=== PATIENT | male | born 1980 | race Caucasian/White ===

== ENCOUNTER 2021-11-05 19:47 | Emergency (ER) | payer OTHER ==
[~2021-11-05] VITALS: Ht 172.7 cm; Wt 100.0 kg
[2021-11-05 22:04] LABS: BASOPHILS % 1.4 % (0.0-2.0); EOSINOPHILS % 2.3 % (0.0-5.0); HEMATOCRIT. 43.4 % (42.0-52.0); LYMPHOCYTES % 40.2 % (20.0-50.0); MEAN CORPUSCULAR VOLUME 98.9 fL (80.0-94.0); MEAN PLATELET VOLUME 8.5 fl (7.4-10.4); MONOCYTES % 8.8 % (2.0-8.0); NEUTROPHILS % 47.3 % (40.0-76.0); PLATELET 186 x1000/uL (130-400); RED BLOOD CELL COUNT 4.38 mill/uL (4.7-6.1); RED CELL DISTRIBUTION WIDTH 14.2 % (11.6-14.6)
[2021-11-05 22:08] LABS: CHLORIDE 107 mEq/L (98-107)
[2021-11-05 22:29] LABS: ETHANOL BLOOD 298 mg/dL
[2021-11-06 02:52] LABS: CLARITY URINE CLEAR (CLEAR); COLOR URINE YELLOW (YELLOW); KETONES URINE NEGATIVE (NEGATIVE); LEUKOCYTE ESTERASE URINE NEGATIVE (NEGATIVE); NITRITE URINE NEGATIVE (NEGATIVE); OCCULT BLOOD URINE NEGATIVE (NEGATIVE); PROTEIN URINE TRACE (NEGATIVE); SPECIFIC GRAVITY URINE 1.021 (1.005-1.030)
[2021-11-06 02:59] LABS: *AMPHETAMINES SCREEN URINE NEGATIVE (NEGATIVE); *BARBITURATES SCREEN URINE NEGATIVE (NEGATIVE); *BENZODIAZEPINES SCREEN URINE NEGATIVE (NEGATIVE); *COCAINE SCREEN URINE NEGATIVE (NEGATIVE)
[2021-11-06 03:00] LABS: CANNABINOID URINE SCREEN NEGATIVE (NEGATIVE); METHADONE URINE SCREEN NEGATIVE (NEGATIVE); OPIATES URINE SCREEN NEGATIVE (NEGATIVE); PHENCYCLIDINE URINE SCREEN NEGATIVE (NEGATIVE)
[2021-11-06 06:00] VITALS: BP 159/80
== END 2021-11-06 06:02 | disposition home or self-care (01) ==
LOC: ER 19:47
DX: F10.129 Alcohol abuse with intoxication, unspecified (principal); R05.9 Cough, unspecified; Y90.8 Blood alcohol level of 240 mg/100 ml or more; F41.9 Anxiety disorder, unspecified; I25.2 Old myocardial infarction; Z20.822 Contact with and (suspected) exposure to COVID-19
CPT/HCPCS: 36415; 71045; 80053; 80305; 80320; 81003; 83690; 83880; 84484; 85025; 99285; C9803; U0003; U0005; G0480

== ENCOUNTER 2022-01-22 19:17 | Emergency (ER) | payer OTHER ==
[~2022-01-22] VITALS: Ht 182.9 cm; Wt 114.0 kg
[2022-01-22 21:40] LABS: BASOPHILS % 1.2 % (0.0-2.0); EOSINOPHILS % 1.8 % (0.0-5.0); HEMATOCRIT. 44.1 % (42.0-52.0); HEMOGLOBIN. 14.8 g/dL (14.0-18.0); LYMPHOCYTES % 25.9 % (20.0-50.0); MEAN CORPUSCULAR HEMOGLOBIN 32.8 pg (28.0-32.0); MEAN CORPUSCULAR VOLUME 98.2 fL (80.0-94.0); MEAN PLATELET VOLUME 8.5 fl (7.4-10.4); MONOCYTES % 9.6 % (2.0-8.0); NEUTROPHILS % 61.5 % (40.0-76.0); PLATELET 231 x1000/uL (130-400); RED BLOOD CELL COUNT 4.49 mill/uL (4.7-6.1); RED CELL DISTRIBUTION WIDTH 16.3 % (11.6-14.6)
[2022-01-22 21:49] LABS: CHLORIDE 105 mEq/L (98-107)
[2022-01-22 22:17] LABS: ETHANOL BLOOD 393 mg/dL
[2022-01-23 03:47] VITALS: BP 149/88
== END 2022-01-23 03:49 | disposition home or self-care (01) ==
LOC: ER 19:17
DX: F10.129 Alcohol abuse with intoxication, unspecified (principal); Y90.8 Blood alcohol level of 240 mg/100 ml or more
CPT/HCPCS: 36415; 80053; 80320; 85025; 99283; G0480